=== PATIENT | female | born 1995 | race Caucasian/White ===

== ENCOUNTER 2017-08-18 17:52 | Outpatient (CLI) | payer MEDICAID ==
[2017-08-18 18:14] LABS: URINE PH (Dip) POC 6.5 (5.0-8.5)
[2017-08-18 18:14] LABS: URINE BLOOD (Dip) POC Trace-lysed (NEGATIVE); URINE GLUCOSE (Dip) POC Negative (NEGATIVE); URINE KETONES (Dip) POC Negative (NEGATIVE); URINE LEUKOCYTE EST (Dip) POC Negative (NEGATIVE); URINE NITRITE (Dip) POC Negative (NEGATIVE); URINE TOTAL PROTEIN POC Negative (NEGATIVE)
== END 2017-08-18 18:40 | disposition home or self-care (01) ==
LOC: OBT 17:52 → L-D 17:53 → OBT 18:40
DX: O26.892 Other specified pregnancy related conditions, second trimester (principal); M25.519 Pain in unspecified shoulder; M54.9 Dorsalgia, unspecified; Z3A.20 20 weeks gestation of pregnancy
CPT/HCPCS: 81003

== ENCOUNTER 2017-12-28 10:15 | Inpatient (IN) | payer MEDICAID ==
[~2017-12-28 10:15] MED LIST: EPHEDrine SULFATE 50 MG/5 ML SYG; OXYTOCIN 30 UNITS/LR 500 ML BAG IV
[2017-12-28] MEDS ORDERED: OXYTOCIN 30 UNITS/LR 500 ML IV ×3 (11:00→17:30)
[2017-12-28] MEDS ORDERED: MISOPROSTOL 200 MCG TAB PR ×2 (11:00→17:30)
[2017-12-28] MEDS ORDERED: METHYLERGONOVINE 0.2 MG INJ IM ×2 (11:00→17:30)
[2017-12-28] MEDS ORDERED: CARBOPROST 250 MCG INJ IM ×2 (11:00→17:30)
[2017-12-28 11:13] LABS: ADD MAN DIFF? NO
[2017-12-28 11:34] LABS: BASOPHILS % 0.1 % (0.0-2.0); HEMATOCRIT 30.8 % (37.0-47.0); HEMOGLOBIN 10.3 g/dl (12.0-16.0); LYMPHOCYTES # 2.1 10^3/ul (0.8-2.9); LYMPHOCYTES % 22.5 % (15.0-51.0); MEAN CORPUSCULAR HEMOGLOBIN 32.9 pg (29.0-33.0); MEAN CORPUSCULAR HGB CONC 33.4 g/dl (32.0-37.0); MEAN CORPUSCULAR VOLUME 98.4 fl (82.0-101.0); MEAN PLATELET VOLUME 10.9 fl (7.4-10.4); MONOCYTE # 0.7 10^3/ul (0.3-0.9); MONOCYTES % 6.8 % (0.0-11.0); NEUTROPHIL # 6.7 10^3/ul (1.6-7.5); NEUTROPHILS % 70.4 % (39.0-77.0); RED BLOOD COUNT 3.13 10^6/ul (4.20-5.40); RED CELL DISTRIBUTION WIDTH 13.9 % (11.5-14.5)
[2017-12-28 11:34] LABS: WHITE BLOOD COUNT 9.5 10^3/ul (4.8-10.8)
[2017-12-28 11:39] LABS: INR 1.01; PROTIME 13.4 Sec (11.9-14.9)
[2017-12-28 11:40] LABS: PARTIAL THROMBOPLASTIN TIME 28.1 Sec (25.0-35.0)
[2017-12-28 11:41] LABS: PLATELET COUNT 121 10^3/UL (140-415)
[2017-12-28 11:42] LABS: POSITIVE DIFF @See below
[2017-12-28] MEDS: LACTATED RINGER'S 1,000 ML IV ×2 (12:12→12:33)
[2017-12-28] MEDS ORDERED: BUPIVACAINE 0.75%/DEXT (SPINAL) 2 ML INJ (12:59)
[2017-12-28] MEDS ORDERED: morphine SULFATE/PF (10 MG/10 ML) INJ (12:59)
[2017-12-28] MEDS ORDERED: PHENYLephrine (100 MCG/ML) 5ML SYG ×2 (13:11→13:38)
[2017-12-28] MEDS: CLINDAMYCIN 900 MG/D5W (PMX) 50 ML IVPB (13:15)
[2017-12-28] MEDS ORDERED: FENTAnyl 50 MCG/ML VIAL (13:34)
[2017-12-28] MEDS ORDERED: ONDANSETRON 4 MG INJ (14:02)
[2017-12-28] MEDS: OXYTOCIN 30 UNITS/LR 500 ML IV ×3 (14:20→21:50)
[2017-12-28] MEDS ORDERED: KETOROLAC 30 MG INJ IV (14:30)
[2017-12-28] MEDS ORDERED: NALOXONE (0.4 MG/ML) INJ IV (14:30)
[2017-12-28] MEDS ORDERED: HYDROmorphONE (0.2 MG/ML) 10ML SYG IV ×2 (14:30)
[2017-12-28] MEDS ORDERED: FENTAnyl 50 MCG/ML VIAL IV ×2 (14:30)
[2017-12-28] MEDS ORDERED: METOCLOPRAMIDE 10 MG INJ IV (14:30)
[2017-12-28] MEDS ORDERED: DIPHENHYDRAMINE 50 MG INJ IV ×2 (14:30)
[2017-12-28] MEDS ORDERED: ONDANSETRON 4 MG INJ IV (14:30)
[2017-12-28] MEDS ORDERED: MEPERIDINE 25 MG INJ IV (14:30)
[2017-12-28] MEDS ORDERED: HYDROmorphONE 0.5 MG/0.5 ML SYG IV ×2 (14:30)
[2017-12-28] MEDS ORDERED: ALBUTEROL 0.083% (NEB) 2.5 MG/3 ML AMP HHN (14:30)
[2017-12-28 15:22] LABS: RAPID PLASMA REAGIN NONREACTIVE (NR)
[2017-12-28] MEDS: ONDANSETRON 4 MG INJ IV (16:05)
[2017-12-28] MEDS ORDERED: HYDROCODONE/APAP (5/325) TAB PO ×2 (17:30)
[2017-12-28] MEDS ORDERED: CEFAZOLIN 1 GM/50 ML (PMX) 50 ML IVPB (17:30)
[2017-12-28 17:41] LABS: HEPATITIS B SURFACE ANTIGEN NEGATIVE (NEGATIVE)
[2017-12-28] MEDS: METOCLOPRAMIDE 10 MG INJ IV (17:42)
[2017-12-28] MEDS: LANOLIN 7 GM TUBE TOP (21:45)
[2017-12-29] MEDS: KETOROLAC 30 MG INJ IV ×2 (01:15→11:32)
[2017-12-29] MEDS: OXYTOCIN 30 UNITS/LR 500 ML IV ×6 (01:46→21:19)
[2017-12-29] MEDS: CLINDAMYCIN 900 MG/D5W (PMX) 50 ML IVPB (05:48)
[2017-12-29] MEDS: LACTATED RINGER'S 1,000 ML IV ×3 (06:19→22:00)
[2017-12-29 09:52] LABS: ADD MAN DIFF? NO
[2017-12-29 09:56] LABS: BASOPHILS % 0.1 % (0.0-2.0); HEMATOCRIT 24.7 % (37.0-47.0); HEMOGLOBIN 8.1 g/dl (12.0-16.0); LYMPHOCYTES # 1.4 10^3/ul (0.8-2.9); LYMPHOCYTES % 14.6 % (15.0-51.0); MEAN CORPUSCULAR HEMOGLOBIN 32.4 pg (29.0-33.0); MEAN CORPUSCULAR HGB CONC 32.8 g/dl (32.0-37.0); MEAN CORPUSCULAR VOLUME 98.8 fl (82.0-101.0); MEAN PLATELET VOLUME 11.1 fl (7.4-10.4); MONOCYTE # 0.7 10^3/ul (0.3-0.9); MONOCYTES % 7.5 % (0.0-11.0); NEUTROPHIL # 7.4 10^3/ul (1.6-7.5); NEUTROPHILS % 77.5 % (39.0-77.0); PLATELET COUNT 151 10^3/UL (140-415); RED CELL DISTRIBUTION WIDTH 14.5 % (11.5-14.5)
[2017-12-29 09:56] LABS: WHITE BLOOD COUNT 9.5 10^3/ul (4.8-10.8)
[2017-12-29] MEDS: SENNA/DOCUSATE NA (8.6MG/50MG) TAB PO ×2 (13:52→21:13)
[2017-12-29] MEDS: OXYCODONE/ACETAMINOPHEN (5/325) TAB PO (13:53)
[2017-12-29] MEDS: IBUPROFEN 600 MG TAB PO ×2 (18:37→23:29)
[2017-12-30] MEDS: OXYTOCIN 30 UNITS/LR 500 ML IV ×2 (01:08→05:19)
[2017-12-30] MEDS: IBUPROFEN 600 MG TAB PO ×4 (05:37→23:40)
[2017-12-30] MEDS: LACTATED RINGER'S 1,000 ML IV ×2 (06:00→14:00)
[2017-12-30] MEDS: SENNA/DOCUSATE NA (8.6MG/50MG) TAB PO ×2 (09:48→21:03)
[2017-12-30] MEDS: OXYCODONE/ACETAMINOPHEN (5/325) TAB PO (17:20)
[2017-12-31] MEDS: OXYCODONE/ACETAMINOPHEN (5/325) TAB PO ×2 (03:37→15:18)
[2017-12-31] MEDS: IBUPROFEN 600 MG TAB PO ×2 (05:44→12:25)
[2017-12-31] MEDS: SENNA/DOCUSATE NA (8.6MG/50MG) TAB PO (09:42)
[2017-12-31] MEDS: DIPHTH/TET/ACEL PERTUSS (ADULT) 0.5 ML VIAL IM* (09:57)
== END 2017-12-31 16:00 | disposition home or self-care (01) | DRG 766 ==
LOC: L-D 10:15 → PP1 17:11
PROVIDERS: Obstetrics & Gynecology
PROC: 10D00Z1 Extraction of Products of Conception, Low, Open Approach (ICD-10-PCS; principal; 2017-12-28 12:30)
PROC: 3E033VJ Introduction of Other Hormone into Peripheral Vein, Percutaneous Approach (ICD-10-PCS; 2017-12-28 12:30)
DX: O34.211 Maternal care for low transverse scar from previous cesarean delivery (principal); O99.214 Obesity complicating childbirth; E66.01 Morbid (severe) obesity due to excess calories; Z68.35 Body mass index [BMI] 35.0-35.9, adult; Z3A.39 39 weeks gestation of pregnancy; Z37.0 Single live birth
CPT/HCPCS: 85025; 85610; 85730; 86592; 86850; 86900; 86901; 87340; 94760; 99464